=== PATIENT | male | born 1990 | race Caucasian/White ===

== ENCOUNTER 2021-01-21 17:21 | Inpatient (IN) | payer BC ==
[2021-01-21] VITALS (99 sets, daily range): BP systolic 107–128; BP diastolic 64–69; PULSE 55–95; TEMP 98.7; O2SAT 99–100
[~2021-01-21] VITALS: Ht 185.4 cm; Wt 76.1 kg
[~2021-01-21 17:21] MED LIST: AMOXICILLIN 50500 MG PO; PREDNISONE20 MG PO
[2021-01-21 17:34] LABS: HEMOGLOBIN 14.7 g/dl (13.5-18.0); MEAN CELL VOLUME 101 fl (80.0-100.0); MEAN CORPUSCULAR HEMOGLOBIN 33 pg (27.0-31.0); MEAN CORPUSCULAR HGB CONC 33 g/dl (33.0-37.0); MEAN PLATELET VOLUME 9.4 fl (7.4-10.4); PLATELET COUNT 274 K/mm3 (130-400); RED BLOOD COUNT 4.46 M/mm3 (4.20-5.60); REDCELL DISTRIBUTION WIDTH-CV 11.6 % (11.5-14.5)
[2021-01-21 17:52] LABS: COLLECTION METHOD CLEAN CATCH
[2021-01-21 17:56] LABS: EOSINOPHIL 2 % (0-4); HYPOCHROMIA 2+; LYMPHOCYTE 24 % (20.0-51.0); NEUTROPHILS 64 % (42.0-75.2); PLATELET ESTIMATE NORMAL (NORMAL)
[2021-01-21 18:01] LABS: ALANINE AMINOTRANSFERASE 29 U/L (4-49); ALBUMIN 5.1 gm/dL (3.5-5.0); ALKALINE PHOSPHATASE 80 U/L (50-136); ANION GAP 22 mmol/L (7-16); AST,SGOT 53 U/L (15-37); BILIRUBIN,TOTAL 0.1 mg/dL (0.0-1.0); BLOOD UREA NITROGEN 13 mg/dL (9-20); CALCIUM 9.8 mg/dL (8.4-10.2); CARBON DIOXIDE 17 mmol/L (22-30); CHLORIDE 105 mmol/L (98-107); CREATININE, serum 1.25 (0.66-1.25); GLUCOSE 202 mg/dL (74-106); POTASSIUM 4.3 mmol/L (3.4-5.0); SODIUM 144 mmol/L (137-145)
[2021-01-21 18:05] LABS: MUCOUS Present /lpf; PH 5 (5-8); SQUAMOUS EPITHELIAL None Seen /hpf; URINE APPEARANCE Hazy; URINE BACTERIA None Seen /hpf; URINE BILIRUBIN Negative (NEGATIVE); URINE BLOOD Negative (NEGATIVE); URINE COLOR Yellow; URINE GLUCOSE 1+ (NEGATIVE); URINE KETONE Negative (NEGATIVE); URINE LEUKOCYTE ESTERASE Negative (NEGATIVE); URINE NITRATE Negative (NEGATIVE); URINE PROTEIN(semi-quant) 1+ (NEGATIVE); URINE RBC 0-2 /hpf; URINE UROBILINOGEN Negative (NEGATIVE)
[2021-01-21 18:09] LABS: TRICYCLIC ANTIDEPRESS URINE NEGATIVE
[2021-01-21 18:10] LABS: ACETAMINOPHEN < 10 ug/mL (10-30); ALCOHOL(ethanol),MEDICAL < 10 mg/dL; SALICYLATE < 1.0 mg/dL
--- NOTE | 2021-01-21 21:03 | NUR ---
Received report from ED nurseLucretia.
[2021-01-21 21:09] LABS: ARTERIAL BLD GAS TCO2 CT 23.3; ARTERIAL BLOOD GAS BASE EXCESS -2.3 (-2-2); ARTERIAL BLOOD GAS HCO3 22.1 meq/L (22-26); ARTERIAL BLOOD GAS PCO2 36.8 mmHg (35-45); ARTERIAL BLOOD GAS PO2 115.8 mmHg (80-100)
--- NOTE | 2021-01-21 21:40 | NUR ---
Patient arrives intubated to ICU room 6 via ED stretcher. Patient transferred to ICU bed with sliding board. All initial vitals within normal limits. Patient arrives with 7.5 ET tube, measuring 26 at the teeth. An 18Fr OG in place measuring 57 at the teeth; placed to low-intermittent suction. Patient vent settings as follows: tidal volume 550, PEEP of 5, FiO2 of 30%, rate of 16. Patient tolerating well. He arrouses to verbal speech but does not follow commands. Propofol infusing at 10 mcg/kg/min to a peripheral 18G in the right forearm. A saline locked 20G in the left forearm is present at arrival. Wilma hospitalist, aware of patient's arrival. No further needs noted at this time.
--- NOTE | 2021-01-21 22:00 | NUR ---
Patient's belongings include a belt, a pair of boots, and a pair of socks; a wallet with $120 lay; half a pack of cigarettes, a rn anesthetist, and a calderón's knife. Patient's wallet, lay, cigarettes, rn anesthetist, and knife are bagged and sent with executive housekeeper, Tara, to be placed in hospital safe.
--- NOTE | 2021-01-21 22:15 | NUR ---
Spoke with patient's sister, Minal Alatorre, who claims to be patient's DPOA. Requested she provide DPOA documentation tomorrow morning.
[2021-01-22] VITALS (639 sets, daily range): BP systolic 94–147; BP diastolic 54–84; PULSE 49–90; TEMP 97.6–99.5; O2SAT 86–100
--- NOTE | 2021-01-22 01:19 | NUR ---
Patient valuables envelope placed in [employer] safe at this time.
--- NOTE | 2021-01-22 05:14 | NUR ---
Patient intubated within the last 12 hours. No sedation vacation performed at this time per Dr. Gutierrez.
[2021-01-22 05:27] LABS: ARTERIAL BLD GAS O2 SATURATION 98.4 % (92-100); ARTERIAL BLD GAS TCO2 CT 25.5; ARTERIAL BLOOD GAS BASE EXCESS 1.1 (-2-2); ARTERIAL BLOOD GAS HCO3 24.5 meq/L (22-26); ARTERIAL BLOOD GAS PCO2 34.7 mmHg (35-45); ARTERIAL BLOOD GAS PO2 124.8 mmHg (80-100); ARTERIAL BLOOD GAS pH 7.47 (7.35-7.45)
[2021-01-22 05:28] LABS: BASO % 0.3 % (0.0-2.0); EOS # 0.1 (0.0-0.7); EOS % 1.3 % (0-4.0); GRAN # 3.8 (1.4-6.5); GRAN % 56.2 % (42.2-75.2); LYMPH # 2.1 (1.2-3.4); LYMPH % 31.5 % (20.0-51.0); MEAN CELL VOLUME 99 fl (80.0-100.0); MEAN CORPUSCULAR HGB CONC 33 g/dl (33.0-37.0); MEAN PLATELET VOLUME 9.4 fl (7.4-10.4); MONO # 0.7 (0.1-0.6); MONO % 10.4 % (1.7-9.3); RED BLOOD COUNT 3.37 M/mm3 (4.20-5.60); REDCELL DISTRIBUTION WIDTH-CV 11.9 % (11.5-14.5)
[2021-01-22 05:36] LABS: HEMATOCRIT 33.5 % (42.0-52.0); HEMOGLOBIN 11.2 g/dl (13.5-18.0); MEAN CORPUSCULAR HEMOGLOBIN 33 pg (27.0-31.0); PLATELET COUNT 150 K/mm3 (130-400)
[2021-01-22 05:39] LABS: ALBUMIN 2.9 gm/dL (3.5-5.0); BILIRUBIN,TOTAL 0.6 mg/dL (0.0-1.0); CREATININE, serum 0.86 (0.66-1.25); POTASSIUM 3.3 mmol/L (3.4-5.0); TOTAL PROTEIN 5.2 gm/dL (6.4-8.2)
--- NOTE | 2021-01-22 07:00 | NUR ---
PT IS INTUBATED AND RESTING COMFORTABLY. PT VSS. PT GETTING LR AND PROPOFOL. PT RESPONDS TO VOICE AND FOLLOW COMMANDS. WILL CONTIUE TO [facility].
[2021-01-22 11:03] LABS: TRICYCLIC ANTIDEPRESS URINE NEGATIVE
--- NOTE | 2021-01-22 11:49 | NUR ---
Patient is currently Intubated. Patient has a but is currently in the process of Divorce. Patient is reported to have two biological sisters Nati and . Patient is reported to have 3 children under the age of 8 who are currently with the sister Nati. Can not confirm this information. Nurse reports talking to sister Nati and having a DPOA, awaiting PPW. Will check in again over the weekend.
--- NOTE | 2021-01-22 12:37 | NUR ---
Sales Service Rep visited with family of patient and prayed with them.
--- NOTE | 2021-01-22 14:18 | NUR ---
Pt has been on weaning trial since around 944. VSS. Call placed to and states ok to extubate. Will do bedside swallow and advance diet as tolerated.
--- NOTE | 2021-01-22 14:30 | NUR ---
PT EXTUBATED AT 1423. PT SATING 98% ON RA. PT IS AXOX4. PT ABLE TO MOVE ALL EXTREMETIES AND FOLLOW COMMANDS. BEDSIDE SWALLOW PASSED. PT DRINKING SIPS OF WATER. PT'S SISTER [facility].
--- NOTE | 2021-01-22 16:54 | NUR ---
PT EXTUBATED TO RA. PT IS ALERT AND AWARE. NO DISTRESS NOTED
[2021-01-23] VITALS (264 sets, daily range): BP systolic 123–153; BP diastolic 61–101; PULSE 77–83; TEMP 98–98.7; O2SAT 89–100
[2021-01-23 05:25] LABS: BASO % 0.3 % (0.0-2.0); EOS # 0.2 (0.0-0.7); EOS % 1.6 % (0-4.0); GRAN # 6.8 (1.4-6.5); GRAN % 67.4 % (42.2-75.2); HEMOGLOBIN 12.4 g/dl (13.5-18.0); LYMPH # 1.8 (1.2-3.4); LYMPH % 18.3 % (20.0-51.0); MEAN CELL VOLUME 97 fl (80.0-100.0); MEAN CORPUSCULAR HEMOGLOBIN 33 pg (27.0-31.0); MEAN CORPUSCULAR HGB CONC 34 g/dl (33.0-37.0); MONO # 1.2 (0.1-0.6); PLATELET COUNT 176 K/mm3 (130-400); REDCELL DISTRIBUTION WIDTH-CV 11.4 % (11.5-14.5)
[2021-01-23 05:28] LABS: HEMATOCRIT 36.8 % (42.0-52.0)
[2021-01-23 05:37] LABS: ALBUMIN 3.3 gm/dL (3.5-5.0); BILIRUBIN,TOTAL 1.3 mg/dL (0.0-1.0); CALCIUM 8.3 mg/dL (8.4-10.2); CREATININE, serum 0.84 (0.66-1.25); MAGNESIUM 1.5 mg/dL (1.6-2.3); POTASSIUM 3.6 mmol/L (3.4-5.0); TOTAL PROTEIN 5.9 gm/dL (6.4-8.2)
--- NOTE | 2021-01-23 07:00 | NUR ---
PT RESTING IN BED. PT HAS LR RUNNING. PT'S VSS. WILL CONTINUE TO MONITOR.
[2021-01-23] MEDS ORDERED: MAG-OX 400400 MG/TAB PO (09:36)
--- NOTE | 2021-01-23 10:04 | NUR ---
Ej's and cynthia bishop'emi. Pt helped to ambulated to restroom. Pt able to void. Discharge instructions discussed with PT. Discussed new prescription [facility] magnesium [facility]. Discussed smoking sessation and drug use. All questions answered. Pt awaiting sister for discharge.
--- NOTE | 2021-01-23 10:11 | NUR ---
PTS BELONGING RETREIVED FROM [employer] PROGRAMMER AND GIVEN TO PT.
--- NOTE | 2021-01-23 10:31 | NUR ---
1026- PT WALKED OUT FOR DISCHARGE. PT HAS ALL BELONGINGS AND PAPERWORK. PT ACCOMPANIED BY SISTER . PT REMINDED TO CARD FILER HIS PRESCRIPTION AT [facility]/
== END 2021-01-23 10:26 | disposition home or self-care (01) | DRG 917 ==
LOC: COL.ER 17:21 → ICU 20:04
PROVIDERS: Family Medicine; Internal Medicine Sleep Medicine; Physician Assistant; ADMIT Internal Medicine
PROC: 5A1945Z Respiratory Ventilation, 24-96 Consecutive Hours (ICD-10-PCS; principal; 2021-01-21)
PROC: 0BH17EZ Insertion of Endotracheal Airway into Trachea, Via Natural or Artificial Opening (ICD-10-PCS; 2021-01-21)
DX: T40.7X1A Poisoning by cannabis (derivatives), accidental (unintentional), initial encounter (principal); J96.01 Acute respiratory failure with hypoxia; G92 Toxic encephalopathy; E87.2 Acidosis; T39.091A Poisoning by salicylates, accidental (unintentional), initial encounter; T42.4X1A Poisoning by benzodiazepines, accidental (unintentional), initial encounter; R73.9 Hyperglycemia, unspecified; E87.6 Hypokalemia; E83.42 Hypomagnesemia; D72.829 Elevated white blood cell count, unspecified; F17.210 Nicotine dependence, cigarettes, uncomplicated
CPT/HCPCS: 99223-AI; 99233-AI; 99239; J0330; J1200; J1630; J1650; J2310; J2405; J2543; J2704; J3010; J3475; J3480; J7030; J7040; J7120